=== PATIENT | male | born 1985 | race Caucasian/White ===

== ENCOUNTER 2021-05-07 07:28 | Emergency (ER) | payer MEDICAID ==
[2021-05-07 08:15] LABS: BASOPHIL 0.3 % (0-2); EOSINOPHIL 0 % (0-5); HCT 43.9 % (42.0-52.0); HGB 15.1 g/dl (13.2-18.0); MCH 29.8 pg (25.0-31.0); MCHC 34.4 g/dL (32.0-36.0); MCV 86.6 fL (78.0-100.0); MONOCYTE 7.3 % (0-12); MPV 10.3 fL (6.0-9.5); NEUTROPHIL 84.9 % (41-80); NRBC 0; PLT 378 K/uL (150-400); RBC 5.07 M/uL (4.70-6.00); RDW 12.3 % (11.5-14.0)
[2021-05-07 08:30] LABS: BUN/CREAT RATIO (CALC) 17.8 RATIO; CREATININE 1.18 mg/dL (0.67-1.17)
[2021-05-07 09:32] LABS: BILIRUBIN NEGATIVE (NEGATIVE); BLOOD 3+ Ery/uL (NEGATIVE); CLARITY CLEAR (CLEAR); COLOR YELLOW (YELLOW); GLUCOSE (U) NORMAL (NORMAL); LEUKOCYTES NEGATIVE Leu/uL (NEGATIVE); NITRITE NEGATIVE (NEGATIVE); PROTEIN NEGATIVE (NEGATIVE); UROBILINOGEN 0.2 mg/dL (0.2-1.0)
[2021-05-07 09:39] LABS: BACTERIA TRACE; MUCOUS TRACE; URINARY RBC 20-50
[2021-05-07] MEDS ORDERED: FLOMAX0.4 MG PO (09:40)
[2021-05-07] MEDS ORDERED: NORCO 5-325 TA1 EACH PO ×3 (09:40→11:28)
== END 2021-05-07 11:46 | disposition home or self-care (01) ==
LOC: FER 07:28
PROVIDERS: Emergency Medicine
DX: N13.2 Hydronephrosis with renal and ureteral calculous obstruction (principal)
CPT/HCPCS: 36415; 80048; 81001; 85025; J1170; J1885; J7030